=== PATIENT | male | born 1960 | race Hispanic/Latino ===

== ENCOUNTER 2019-04-02 11:24 | Emergency (ER) | payer OTHER ==
--- OUTSIDE RECORDS SUMMARY | 2019-04-02 11:27 | XMS REPORT | Continuity of Care Document ---
:1960 Author Organization [facility] Care Team Providers Name Role Phone MD Lantigua Tom Unavailable Unavailable Insurance Providers Payer name Policy type / Policy ID Covered libertarian ID Policy [place] Coverage type 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 GROIN MASS, RIGHT Mar 02, 2012 Active LONG-TERM (CURRENT) USE OF OTHER MEDICATIONS Mar 02, 2012 Active SPECIAL SCREENING MALIGNANT NEOPLASM OF PROSTATE Mar 02, 2012 Active INSOMNIA May 09, 2012 Active ALLERGIC RHINITIS Jun 19, 2013 Active TINNITUS Jun 19, 2013 Active CERUMEN IMPACTION, LEFT Jun 19, 2013 Active SCREENING, COLON CANCER Jun 22, 2013 Active SPECIAL SCREENING MALIGNANT NEOPLASM OF PROSTATE Jun 22, 2013 Active INFLUENZA WITH RESPIRATORY MANIFESTATIONS Jun 29, 2013 Active BODY MASS INDEX 28.0-28.9, ADULT Jul 01, 2014 Active HEMATOCHEZIA Sep 09, 2014 Active NEED FOR PROPHYLACTIC VACCINATION AND INOCULATION Sep 10, 2014 Active AGAINST INFLUENZA UNSPECIFIED HEMORRHOIDS WITH OTHER COMPLICATION Sep 10, 2014 Active Procedures Date Description Comments Dec 14, 2011 smoking status smoker - current status unknown Mar 02, 2012 smoking status never smoker May 09, 2012 smoking status never smoker Jul 01, 2014 smoking status Never smoker Sep 09, 2014 smoking status Never smoker Medications Medication Instructions Start Date Status PROPRANOLOL HCL 80 MG TABS Active INDERAL LA 120 MG [id number] 1 p.o. daily Dec 14, 2011 Active TRAMADOL HCL 50 MG TABS 1 p.o. every 6 hrs. as needed Dec 14, 2011 Active AMLODIPINE BESYLATE 10 MG TABS 1 p.o. daily Dec 14, 2011 Active AMLODIPINE BESYLATE 10 MG TABS 1 PO Q DAILY November 20, 2012 Active LISINOPRIL-HYDROCHLOROTHIAZIDE one po q daily November 20, 2012 Active 10-12.5 MG TABS FLONASE 50 MCG/ACT SUSP 2 sprays to each nostril daily Jun 19, 2013 Active KLONOPIN 0.5 MG TABS 1 po q hs prn insomia May 09, 2012 Inactive LISINOPRIL-HYDROCHLOROTHIAZIDE one po daily Jun 22, 2013 Active 10-12.5 MG TABS TAMIFLU 75 MG CAPS take one tablet by mouth twice a Jun 29, 2013 Inactive day for five days ZITHROMAX Z-ANNELISE 250 MG TABS as directed with food Jun 29, 2013 Inactive AUGMENTIN 875-125 MG TABS 1 po bid x 10 d with food Jun 29, 2013 Inactive VENLAFAXINE HCL ER 37.5 MG 1 po qd Jul 01, 2014 Active [id number] TRAMADOL HCL 50 MG TABS 1 po q 6 hours prn severe Apr 25, 2013 Inactive headache ANUSOL-HC 25 MG SUPP Insert 1 suppository per rectum Sep 10, 2014 Active twice a day for 5 days Vital Signs Date Description Test Result Dec 14, 2011 height E&M - 8302-2 HEIGHT 66.5 in Dec 14, 2011 weight E&M - 3141-9 WEIGHT 171.8 lb Dec 14, 2011 temperature E&M TEMPERATURE 98.4 deg f Dec 14, 2011 pulse rate E&M - 8867-4 PULSE RATE 72 /min Dec 14, 2011 blood pressure, systolic - 8480-6 BP SYSTOLIC 100 mm Hg Dec 14, 2011 blood pressure, diastolic - 8462-4 BP DIASTOLIC 70 mm Hg Mar 02, 2012 weight E&M - 3141-9 WEIGHT 176 lb Mar 02, 2012 temperature E&M TEMPERATURE 98.9 deg f Mar 02, 2012 respiratory rate E&M - 9279-1 RESP RATE 19 /min Mar 02, 2012 pulse rate E&M - 8867-4 PULSE RATE 60 /min Mar 02, 2012 blood pressure, systolic - 8480-6 BP SYSTOLIC 112 mm Hg Mar 02, 2012 blood pressure, diastolic - 8462-4 BP DIASTOLIC 80 mm Hg May 09, 2012 weight E&M - 3141-9 WEIGHT 179.8 lb May 09, 2012 temperature E&M TEMPERATURE 98 deg f May 09, 2012 pulse rate E&M - 8867-4 PULSE RATE 60 /min May 09, 2012 blood pressure, systolic - 8480-6 BP SYSTOLIC 100 mm Hg May 09, 2012 blood pressure, diastolic - 8462-4 BP DIASTOLIC 60 mm Hg May 31, 2013 weight E&M - 3141-9 WEIGHT 181.2 lb May 31, 2013 temperature E&M TEMPERATURE 98.6 deg f May 31, 2013 pulse rate E&M - 8867-4 PULSE RATE 72 /min May 31, 2013 blood pressure, systolic - 8480-6 BP SYSTOLIC 102 mm Hg May 31, 2013 blood pressure, diastolic - 8462-4 BP DIASTOLIC 60 mm Hg Jun 19, 2013 weight E&M - 3141-9 WEIGHT 180 lb Jun 19, 2013 respiratory rate E&M - 9279-1 RESP RATE 14 /min Jun 19, 2013 temperature E&M TEMPERATURE 97.7 deg f Jun 19, 2013 pulse rate E&M - 8867-4 PULSE RATE 72 /min Jun 19, 2013 blood pressure, systolic - 8480-6 BP SYSTOLIC 118 mm Hg Jun 19, 2013 blood pressure, diastolic - 8462-4 BP DIASTOLIC 70 mm Hg Jun 22, 2013 weight E&M - 3141-9 WEIGHT 180 lb Jun 22, 2013 temperature E&M TEMPERATURE 98.3 deg f Jun 22, 2013 respiratory rate E&M - 9279-1 RESP RATE 16 /min Jun 22, 2013 pulse rate E&M - 8867-4 PULSE RATE 80 /min Jun 22, 2013 blood pressure, systolic - 8480-6 BP SYSTOLIC 124 mm Hg Jun 22, 2013 blood pressure, diastolic - 8462-4 BP DIASTOLIC 76 mm Hg Jun 29, 2013 weight E&M - 3141-9 WEIGHT 181 lb Jun 29, 2013 respiratory rate E&M - 9279-1 RESP RATE 16 /min Jun 29, 2013 temperature E&M TEMPERATURE 102 deg f Jun 29, 2013 pulse rate E&M - 8867-4 PULSE RATE 104 /min Jun 29, 2013 blood pressure, systolic - 8480-6 BP SYSTOLIC 126 mm Hg Jun 29, 2013 blood pressure, diastolic - 8462-4 BP DIASTOLIC 78 mm Hg Jul 01, 2014 height E&M - 8302-2 HEIGHT 66.5 in Jul 01, 2014 weight E&M - 3141-9 WEIGHT 178 lb Jul 01, 2014 temperature E&M TEMPERATURE 98.5 deg f Jul 01, 2014 respiratory rate E&M - 9279-1 RESP RATE 16 /min Jul 01, 2014 pulse rate E&M - 8867-4 PULSE RATE 48 /min Jul 01, 2014 blood pressure, systolic - 8480-6 BP SYSTOLIC 110 mm Hg Jul 01, 2014 blood pressure, diastolic - 8462-4 BP DIASTOLIC 70 mm Hg Sep 09, 2014 weight E&M - 3141-9 WEIGHT 184 lb Sep 09, 2014 height E&M - 8302-2 HEIGHT 66.5 in Sep 09, 2014 temperature E&M TEMPERATURE 98.4 deg f Sep 09, 2014 respiratory rate E&M - 9279-1 RESP RATE 17 /min Sep 09, 2014 pulse rate E&M - 8867-4 PULSE RATE 60 /min Sep 09, 2014 blood pressure, systolic - 8480-6 BP SYSTOLIC 112 mm Hg Sep 09, 2014 blood pressure, diastolic - 8462-4 BP DIASTOLIC 72 mm Hg Sep 10, 2014 height E&M - 8302-2 HEIGHT 66.5 in Sep 10, 2014 weight E&M - 3141-9 WEIGHT 179.6 lb Sep 10, 2014 temperature E&M TEMPERATURE 98.6 deg f Sep 10, 2014 blood pressure, systolic - 8480-6 BP SYSTOLIC 132 mm Hg Sep 10, 2014 blood pressure, diastolic - 8462-4 BP DIASTOLIC 76 mm Hg Results Date Description Test Name Value Reference Interpretation Status Jul 02, hemoglobin, blood HGB 15.7 g/dL 12.3-17.3 2013Jul 02, hematocrit, blood HCT 46.5 % 36.7-50.5 2013Jul 02, sodium, serum SODIUM 140 mmol/L [phone] Jul 02, potassium, serum POTASSIUM 4.0 mmol/L 3.3-5.0 2013Jul 02, albumin, serum ALBUMIN 4.4 g/dL 3.5-5.0 2013Jul 02, calcium, serum CALCIUM 9.8 mg/dL 8.6-9.8 2013Jul 02, creatinine, serum CREATININE 0.88 mg/dL 0.46-1.20 2013Jul 02, urea nitrogen, blood BUN 21 mg/dL -22 2013Jul 02, alkaline phosphatase, ALK PHOS 66 U/L 32-96 2013 serum Jul 02, aspartate SGOT (AST) 22 U/L 10-42 2013 aminotransferase (SGOT), serum Jul 02, alanine SGPT (ALT) 31 U/L -43 2013 aminotransferase (SGPT), serum Jul 02, cholesterol, serum CHOLESTEROL 200 mg/dl [phone] Jul 02, HDL cholesterol, HDL 41 mg/dl 26-62 2013 serum Jul 02, LDL cholesterol, LDL 122 mg/dl 0-130 2013 serum Jul 02, prostate specific PSA 1.14 ng/mL 0-4.0 2013 antigen Jul 02, thyroid stimulating TSH 2.14 0.34-5.60 2014 hormone, serum uIU/mL
--- OUTSIDE RECORDS SUMMARY | 2019-04-02 11:27 | XMS REPORT | Continuity of Care Document ---
:1960 Author Organization [employer] Care Team Providers Name Role Phone [employer] Unavailable Unavailable Problems Problem Status Onset Classification Date Comments Source Date Reported NEED FOR Active 09/11/19 Condition 09/10/2014 Medical PROPHYLACTIC 15 Group VACCINATION AND INOCULATION AGAINST INFLUENZA UNSPECIFIED Active 09/11/19 Condition 09/10/2014 Medical HEMORRHOIDS WITH 15 Group OTHER COMPLICATION HEMATOCHEZIA Active 09/10/19 Condition 09/10/2014 Medical 15 Group BODY MASS INDEX Active 07/01/20 Condition 09/10/2014 Medical 28.0-28.9, ADULT 14 Group INFLUENZA WITH Active 06/29/20 Condition 09/10/2014 Medical RESPIRATORY 13 Group MANIFESTATIONS SCREENING, COLON Active 06/22/20 Condition 09/10/2014 Medical CANCER 13 Group ALLERGIC RHINITIS Active 06/19/20 Condition 09/10/2014 Medical 13 Group TINNITUS Active 06/19/20 Condition 09/10/2014 Medical 13 Group CERUMEN IMPACTION, Active 06/19/20 Condition 09/10/2014 Medical LEFT 13 Group INSOMNIA Active 05/09/20 Condition 09/10/2014 Medical 12 Group GROIN MASS, RIGHT Active 03/02/20 Condition 09/10/2014 Medical 12 Group LONG-TERM Active 03/02/20 Condition 09/10/2014 Medical (CURRENT) USE OF 12 Group OTHER MEDICATIONS SPECIAL SCREENING Active 03/02/20 Condition 09/10/2014 Medical MALIGNANT NEOPLASM 12 Group OF PROSTATE HYPERTENSION Active 12/14/19 Condition 09/10/2014 Medical 12 Group TENSION HEADACHE Active 12/14/19 Condition 09/10/2014 Medical 12 Group MIGRAINE, Active 12/14/19 Condition 09/10/2014 Medical CLASSICAL 12 Group MALIGNANT NEOPLASM Active 12/14/19 Condition 09/10/2014 Medical OF CEREBRAL 12 Group MENINGES FH DIABETES Active Condition 09/10/2014 Medical Group HYPERLIPIDEMIA Active Condition 09/10/2014 Medical Group HTN Active Condition 09/10/2014 Medical Group Medications Medication Details Route Status Patient Ordering Order Source Instructions Provider Date ANUSOL-HC 25 Insert 1 Active MH MG SUPP suppository 015 Medical per rectum Group twice a day for 5 days VENLAFAXINE 1 po qd Active HCL ER 37.5 MG 014 Medical [id number] Group TAMIFLU 75 MG take one No Longer CAPS tablet by Active 013 Medical mouth twice a Group day for five days ZITHROMAX as directed No Longer Z-ANNELISE 250 MG with food Active 013 Medical TABS Group AUGMENTIN 1 po bid x 10 No Longer 875-125 MG d with food Active 013 Medical TABS Group LISINOPRIL-HYD one po daily Active ROCHLOROTHIAZI 013 Medical DE 10-12.5 MG Group TABS LISINOPRIL-HYD one po daily Active ROCHLOROTHIAZI 013 Medical DE 10-12.5 MG Group TABS FLONASE 50 2 sprays to Active MCG/ACT SUSP each nostril 013 Medical daily Group TRAMADOL HCL 1 po q 6 hours No Longer MH 50 MG TABS prn severe Active 013 Medical headache Group AMLODIPINE 1 PO Q DAILY Active BESYLATE 10 MG 013 Medical TABS Group LISINOPRIL-HYD one po q daily Active ROCHLOROTHIAZI 013 Medical DE 10-12.5 MG Group TABS KLONOPIN 0.5 1 po q hs prn No Longer MH MG TABS insomia Active 012 Medical Group INDERAL LA 120 1 p.o. daily Active MH MG [id number] 012 Medical Group TRAMADOL HCL 1 p.o. every 6 Active MH 50 MG TABS hrs. as needed 012 Medical Group AMLODIPINE 1 p.o. daily Active BESYLATE 10 MG 012 Medical TABS Group TRAMADOL HCL 1 p.o. every 6 Active MH 50 MG TABS hrs. as needed 012 Medical Group PROPRANOLOL Active MH HCL 80 MG TABS Medical Group Allergies, Adverse Reactions, Alerts No Known Medication Allergies Immunizations No Data Provided for This Section Results Order Name Results Value Reference Date Interpretation Comments Source Range Chemistry SODIUM 140 135 - 143 2013 Medical Group Chemistry POTASSIUM 4.0 3.3 - 5.0 2013 Medical Group Chemistry ALBUMIN 4.4 3.5 - 5.0 2013 Medical Group Chemistry CALCIUM 9.8 8.6 - 9.8 2013 Medical Group Chemistry CREATININE 0.88 0.46 - 1.20 2013 Medical Group Chemistry BUN 21 10 - 22 2013 Medical Group Chemistry ALK PHOS 66 32 - 96 2013 Medical Group Chemistry SGOT (AST) 22 10 - 42 2013 Medical Group Chemistry SGPT (ALT) 31 11 - 43 2013 Medical Group Chemistry CHOLESTEROL 200 120 - 200 2013 Medical Group Chemistry HDL 41 26 - 62 2013 Medical Group Chemistry LDL 122 0 - 130 2013 Medical Group Chemistry PSA 1.14 0 - 4.0 2013 Medical Group Chemistry TSH 2.14 0.34 - 5.60 2013 Medical Group Hematology HGB 15.7 12.3 - 17.3 2013 Medical Group Hematology HCT 46.5 36.7 - 50.5 2013 Medical Group Pathology Reports No Data Provided for This Section Diagnostic Reports No Data Provided for This Section Consultation Notes No Data Provided for This Section Discharge Summaries No Data Provided for This Section History and Physicals No Data Provided for This Section Vital Signs Vital Sign Value Date Comments Source Height 66.5 09/10/2014 Medical Group Weight 179.6 09/10/2014 Medical Group Temperature Oral (F) 98.6 F 09/10/2014 Medical Group Systolic (mm Hg) 132 09/10/2014 Medical Group Diastolic (mm Hg) 76 09/10/2014 Medical Group Weight 184 09/09/2014 Medical Group Height 66.5 09/09/2014 Medical Group Temperature Oral (F) 98.4 F 09/09/2014 Medical Group Respitory Rate 17 09/09/2014 Medical Group Heart Rate 60 09/09/2014 Medical Group Systolic (mm Hg) 112 09/09/2014 Medical Group Diastolic (mm Hg) 72 09/09/2014 Medical Group Height 66.5 07/01/2014 [facility] Weight 178 07/01/2014 [facility] Temperature Oral (F) 98.5 F 07/01/2014 [facility] Respitory Rate 16 07/01/2014 Medical Group Heart Rate 48 07/01/2014 [facility] Systolic (mm Hg) 110 07/01/2014 [facility] Diastolic (mm Hg) 70 07/01/2014 [facility] Weight 181 06/29/2013 [facility] Respitory Rate 16 06/29/2013 [facility] Temperature Oral (F) 102 F 06/29/2013 Medical Group Heart Rate 104 06/29/2013 [facility] Systolic (mm Hg) 126 06/29/2013 [facility] Diastolic (mm Hg) 78 06/29/2013 [facility] Weight 180 06/22/2013 [facility] Temperature Oral (F) 98.3 F 06/22/2013 Medical Group Respitory Rate 16 06/22/2013 [facility] Heart Rate 80 06/22/2013 [facility] Systolic (mm Hg) 124 06/22/2013 [facility] Diastolic (mm Hg) 76 06/22/2013 [facility] Weight 180 06/19/2013 Medical Group Respitory Rate 14 06/19/2013 [facility] Temperature Oral (F) 97.7 F 06/19/2013 Medical Group Heart Rate 72 06/19/2013 [facility] Systolic (mm Hg) 118 06/19/2013 [facility] Diastolic (mm Hg) 70 06/19/2013 Medical Group Weight 181.2 05/31/2013 [facility] Temperature Oral (F) 98.6 F 05/31/2013 Medical Group Heart Rate 72 05/31/2013 [facility] Systolic (mm Hg) 102 05/31/2013 Medical Group Diastolic (mm Hg) 60 05/31/2013 Medical Group Weight 179.8 05/09/2012 [facility] Temperature Oral (F) 98 F 05/09/2012 Medical Group Heart Rate 60 05/09/2012 [facility] Systolic (mm Hg) 100 05/09/2012 Medical Group Diastolic (mm Hg) 60 05/09/2012 Medical Group Weight 176 03/02/2012 Medical Group Temperature Oral (F) 98.9 F 03/02/2012 Medical Group Respitory Rate 19 03/02/2012 Medical Group Heart Rate 60 03/02/2012 Medical Group Systolic (mm Hg) 112 03/02/2012 Medical Group Diastolic (mm Hg) 80 03/02/2012 Medical Group Height 66.5 12/14/2011 Medical Group Weight 171.8 12/14/2011 Medical Group Temperature Oral (F) 98.4 F 12/14/2011 Medical Group Heart Rate 72 12/14/2011 Medical Group Systolic (mm Hg) 100 12/14/2011 Medical Group Diastolic (mm Hg) 70 12/14/2011 Medical Group Encounters Location Location Encounter Encounter Reason Attending ADM DC Status Source Details Type Number For Provider Date Date Visit [facility] Office [id number] Travis 07/01 07/01 [facility] Visit 180 Desha, /2013 Medical Medical MD Group [facility] Office [id number] Travis 09/09 09/09 [facility] Visit 080 Desha, /2014 Medical Medical MD Group [facility] Office [id number] Travis 09/10 09/10 [facility] Visit 740 Desha, /2014 Medical Medical MD Group [facility] [id number] GALL[place] [facility] [id number] [facility] 08/12 [facility] [id number] [facility] 01/29 [facility] [id number] GALL[place] 07/02 [facility] [place] Procedures No Data Provided for This Section Assessment and Plan No Data Provided for This Section Plan of Care No Data Provided for This Section Social History No Data Provided for This Section Family History No Data Provided for This Section Advance Directives No Data Provided for This Section Functional Status No Data Provided for This Section
--- OUTSIDE RECORDS SUMMARY | 2019-04-02 11:27 | XMS REPORT | Continuity of Care Document ---
:1960 Author Organization [facility] Care Team Providers Name Role Phone MD Lantigua Tom Unavailable Unavailable Insurance Providers Payer name Policy type / Policy ID Covered alliance party ID Policy [place] Coverage type [facility] Encounters Encounter Performer Location Date Office Visit Travis Lantigua MD [facility] Medical [place] [facility] Jul 01, 2014 Practice Problems Problem Effective Dates Problem Status HYPERTENSION Dec 14, 2011 Active TENSION HEADACHE [...] INDEX 28.0-28.9, ADULT Jul 01, 2014 Active Procedures Date Description Comments Dec 14, 2011 smoking status smoker - current status unknown Mar 02, 2012 smoking status never smoker May 09, 2012 smoking status never smoker Jul 01, 2014 smoking status Never smoker Medications Medication Instructions Start Date Status INDERAL LA 120 MG [id number] 1 p.o. daily Dec 14, 2011 Active TRAMADOL HCL 50 MG TABS 1 p.o. every 6 hrs. as needed Dec 14, 2011 Active AMLODIPINE BESYLATE 10 MG TABS 1 p.o. daily Dec 14, 2011 Active FLONASE 50 MCG/ACT SUSP 2 sprays to [...] 1 po qd Jul 01, 2014 Active [id number] Vital Signs Date Description Test Result Dec 14, 2011 height E&M - 8302-2 HEIGHT 66.5 in Dec 14, 2011 weight Venkatesh - Kami-9 WEIGHT 171.8 lb Dec 14, 2011 temperature E&M TEMPERATURE 98.4 deg f Dec 14, 2011 pulse rate E&M - 8867-4 PULSE RATE 72 /min Dec 14, 2011 blood pressure, systolic - 8480-6 BP SYSTOLIC 100 mm Hg Dec 14, 2011 blood pressure, diastolic - 8462-4 BP DIASTOLIC 70 mm Hg Mar 02, 2012 weight Venkatesh - Shaniqua1-9 WEIGHT 176 lb Mar 02, 2012 temperature [...] 80 mm Hg May 09, 2012 weight Venkatesh - Shaniqua1-9 WEIGHT 179.8 lb May 09, 2012 temperature E&M TEMPERATURE 98 deg f May 09, 2012 pulse rate E&M - 8867-4 PULSE RATE 60 /min May 09, 2012 blood pressure, systolic - 8480-6 BP SYSTOLIC 100 mm Hg May 09, 2012 blood pressure, diastolic - 8462-4 BP DIASTOLIC 60 mm Hg May 31, 2013 weight Venkatesh - Shaniqua1-9 WEIGHT 181.2 lb May 31, 2013 temperature E&M TEMPERATURE 98.6 deg f May 31, 2013 pulse rate E&M - 8867-4 PULSE RATE 72 /min May 31, 2013 blood pressure, systolic - 8480-6 BP SYSTOLIC 102 mm Hg May 31, 2013 blood pressure, diastolic - 8462-4 BP DIASTOLIC 60 mm Hg Jun 19, 2013 weight Venkatesh - Shaniqua1-9 WEIGHT 180 lb Jun 19, 2013 respiratory [...]
--- OUTSIDE RECORDS SUMMARY | 2019-04-02 11:27 | XMS REPORT | Continuity of Care Document ---
:[address] [facility] Care Team Providers Name Role Phone MD Lantigua Tom Unavailable Unavailable Insurance Providers Payer name Policy type / Policy ID Covered republican ID Policy [place] Coverage type [facility] EPO CHOICE [facility] (EPO) Encounters Encounter Performer Location Date Office Visit Travis Lantigua MD [facility] Medical [place] [facility] Sep 09, 2014 Practice Problems Problem Effective Dates Problem Status HTN [...] 2014 Active HEMATOCHEZIA Sep 09, 2014 Active Procedures Date Description Comments Dec 14, 2011 smoking status smoker - current status unknown Mar 02, 2012 smoking status never smoker May 09, 2012 smoking status never smoker Jul 01, 2014 smoking status Never smoker Sep 09, 2014 smoking status Never smoker Medications Medication Instructions Start Date Status PROPRANOLOL HCL 80 MG TABS Active INDERAL LA 120 MG [id number] 1 p.o. daily Dec 14, 2011 Active [...] 1 po qd Jul 01, 2014 Active [id number] TRAMADOL HCL 50 MG TABS 1 po q 6 hours prn severe Apr 25, 2013 Inactive headache Vital Signs Date Description Test Result Dec [...] - 8462-4 BP DIASTOLIC 72 mm Hg Results Date Description Test Name Value Reference Interpretation Status Jul 02, hemoglobin, blood HGB 15.7 g/dL 12.3-17.3 2013Jul 02, hematocrit, blood HCT 46.5 % 36.7-50.5 2013Jul 02, sodium, serum SODIUM 140 mmol/L [phone] Jul 02, potassium, serum POTASSIUM 4.0 mmol/L 3.3-5.0 2013Jul 02, albumin, serum ALBUMIN 4.4 g/dL 3.5-5.0 2013Jul 02, calcium, serum CALCIUM 9.8 mg/dL 8.6-9.8 2013Jul 02, creatinine, serum CREATININE 0.88 mg/dL 0.46-1.20 2013Jul 02, urea nitrogen, blood BUN 21 mg/dL -22 2013Jul 02, alkaline phosphatase, ALK PHOS 66 U/L 32-96 2013Jul 02, aspartate SGOT (AST) 22 U/L 10-42 2013 aminotransferase (SGOT), serum Jul 02, alanine SGPT (ALT) 31 U/L -43 2013 aminotransferase (SGPT), serum Jul 02, cholesterol, serum CHOLESTEROL 200 mg/dl [phone] Jul 02, HDL cholesterol, HDL 41 mg/dl 26-62 2013 serum Jul 02, LDL cholesterol, LDL 122 mg/dl 0-130 2013Jul 02, prostate specific PSA 1.14 ng/mL 0-4.0 2013 antigen Jul 02, thyroid stimulating TSH 2.14 0.34-5.60 2014 hormone, serum uIU/mL
--- NOTE | 2019-04-02 12:21 | EDPHYS ---
Physician Documentation [facility] Name: Hudson Agustin Age: 59 yrs Sex: Male : 1960 Arrival Date: 04/02/2019 Time: 11:27 Bed 26 Private MD: ED Physician Karel Dawson HPI: 04/02 12:02 This 59 yrs old Male presents to ER via Ambulatory with complaints of Nausea, gs Dizziness. 12:02 The patient presents with dizziness, lightheadedness, vertigo. Onset: The gs symptoms/episode began/occurred 2 day(s) ago. Onset: The symptoms/episode began/occurred intermittent. Modifying factors: The symptoms are alleviated by nothing, the symptoms are aggravated by nothing. Associated signs and symptoms: Pertinent positives: nausea. Severity of symptoms: At their worst the symptoms were moderate in the emergency department the symptoms have resolved. The patient has experienced similar episodes in the past, a few times. Historical: - Allergies: 11:33 No Known Allergies; bp - Home Meds: 11:33 propranolol 120 mg oral Cs24 1 cap once daily [Active]; amlodipine 5 mg tab 1 tab once bp daily [Active]; tramadol 50 mg Oral tab 1 tab every 6 hours [Active]; zolpidem 10 mg Oral tab 1 tab once daily [Active]; - PMHx: 11:33 Hypertension; bp 12:05 brain tumor; gs - Immunization history:: Adult Immunizations up to date. - Social history:: Smoking status: Patient/guardian denies using tobacco. - Ebola Screening: : No symptoms or risks identified at this time. ROS: 12:05 All other systems are negative. gs Exam: 12:05 Head/Face: Normocephalic, atraumatic. Eyes: Pupils equal round and reactive to light, gs extra-ocular motions intact. Lids and lashes normal. Conjunctiva and sclera are non-icteric and not injected. Cornea within normal limits. Periorbital areas with no swelling, redness, or edema. ENT: Nares patent. No nasal discharge, no septal abnormalities noted. Tympanic membranes are normal and external auditory canals are clear. Oropharynx with no redness, swelling, or masses, exudates, or evidence of obstruction, uvula midline. Mucous membranes moist. Neck: Trachea midline, no thyromegaly or masses palpated, and no cervical lymphadenopathy. Supple, full range of motion without nuchal rigidity, or vertebral point tenderness. No Meningismus. Chest/axilla: Normal chest wall appearance and motion. Nontender with no deformity. No lesions are appreciated. Cardiovascular: Regular rate and rhythm with a normal S1 and S2. No gallops, murmurs, or rubs. Normal PMI, no JVD. No pulse deficits. Respiratory: Lungs have equal breath sounds bilaterally, clear to auscultation and percussion. No rales, rhonchi or wheezes noted. No increased work of breathing, no retractions or nasal flaring. Abdomen/GI: Soft, non-tender, with normal bowel sounds. No distension or tympany. No guarding or rebound. No evidence of tenderness throughout. Back: No spinal tenderness. No costovertebral tenderness. Full range of motion. Skin: Warm, dry with normal turgor. Normal color with no rashes, no lesions, and no evidence of cellulitis. MS/ Extremity: Pulses equal, no cyanosis. Neurovascular intact. Full, normal range of motion. 12:05 Constitutional: The patient appears alert, awake. 12:05 ECG was reviewed by the Attending Physician. 12:05 Neuro: Orientation: is normal, Mentation: is normal, Memory: is normal, Cranial nerves: CN II- XII are normal as tested, Cerebellar function: normal finger to nose testing, heel to gaxiola testing is normal, Motor: is normal, Sensation: no obvious gross deficits. Vital Signs: 11:33 BP 161 / 91; Pulse 54; Resp 17; Temp 97.5; Pulse Ox 99% ; Weight 77.11 kg; Height 5 ft. bp 6 in. (167.64 cm); 11:33 Body Mass Index 27.44 (77.11 kg, 167.64 cm) bp NIH Stroke Scale Scores: 12:05 NIHSS Score: 0 gs MDM: 11:58 Patient medically screened. gs 12:05 Differential diagnosis: cardiac arrhythmia, near-syncope, vertigo. Data reviewed: vital gs signs, nurses notes. Counseling: I had a detailed discussion with the patient and/or guardian regarding: the historical points, exam findings, and any diagnostic results supporting the discharge/admit diagnosis, the need for outpatient follow up, a neurologist. Response to treatment: the patient's symptoms have resolved after treatment. Physician consultation: Giovani Street MD regarding patient's condition, need to evaluate the patient as soon as possible, outpatient follow-up, and will see patient in office, in 2-3 days, will order MRI. EC:05 Rate is 55 beats/min. Rhythm is regular. NH interval is prolonged. QRS interval is gs normal. T waves are Normal. No ST changes noted. Clinical impression: Abnormal EKG without significant change. Interpreted by me. Administered Medications: No medications were administered Disposition: 04/02/19 12:20 Discharged to Home. Impression: Dizziness and giddiness. - Condition is Stable. - Discharge Instructions: Dizziness. - Prescriptions for Zyrtec 10 mg Oral Tablet - take 1 tablet by ORAL route once daily As needed; 20 tablet. - Medication Reconciliation Form, Thank You Letter, Antibiotic Education, Prescription Opioid Use form. - Follow up: Giovani Street MD; When: 1 - 2 days; Reason: Re-evaluation by your physician. NIH Stroke Scale - NIH Stroke Score Date: 04/02/2019 Time: 12:05 Total Score = 0 1a. Level of Consciousness (LOC) - 0(Alert) 1b. Level of Consciousness (LOC) (Year \T\ Age) - 0(Both) 1c. LOC Commands (Open \T\ Closes Eyes/Motor Builder Winder) - 0(Both) 2. Best Gaze (Lateral Gaze Paresis) - 0(Normal) 3. Visual Field Loss - 0(No visual loss) 4. Facial Palsy - 0(Normal) 5a. Left Arm: Motor (10-second hold) - 0(No drift) 5b. Right Arm: Motor (10-second hold) - 0(No drift) 6a. Left Leg: Motor (5-second hold - always test supine) - 0(No drift) 6b. Right Leg: Motor (5-second hold - always test supine) - 0(No drift) 7. Limb Ataxia (finger/nose \T\ heel/gaxiola - test with eyes open) - 0(Absent) 8. Sensory Loss (pinprick arms/legs/face) - 0(Normal) 9. Best Language: Aphasia (description/naming/reading) - 0(No aphasia) 10. Dysarthria (speech clarity - read or repeat words) - 0(Normal) 11. Extinction and Inattention (visual/tactile/auditory/spatial/personal) - 0(No abnormality) Initials: Signatures: Mariella Drew RN RN aj1 Karel Dawson MD MD gs Malik Yang RN RN bp Corrections: (The following items were deleted from the chart) 12:44 12:20 04/02/2019 12:20 Discharged to Home. Impression: Dizziness and giddiness. aj1 Condition is Stable. Forms are Medication Reconciliation Form, Thank You Letter, Antibiotic Education, Prescription Opioid Use. Follow up: Giovani Street; When: 1 - 2 days; Reason: Re-evaluation by your physician. gs
--- NOTE | 2019-04-02 12:21 | ER ---
Nurse's Notes [facility] Name: Hudson Agustin Age: 59 yrs Sex: Male : 1960 Arrival Date: 04/02/2019 Time: 11:27 Bed 26 Private MD: Diagnosis: Dizziness and giddiness Presentation: 04/02 11:31 Presenting complaint: Patient states: DIZZINESS AND NAUSEA x2 DAYS. Transition of care: bp patient was not received from another setting of care. Onset of symptoms is unknown. Risk Assessment: Do you want to hurt yourself or someone else? Patient reports no desire to harm self or others. Initial Sepsis Screen: Does the patient meet any 2 criteria? No. Patient's initial sepsis screen is negative. Does the patient have a suspected source of infection? No. Patient's initial sepsis screen is negative. Care prior to arrival: None. 11:31 Method Of Arrival: Ambulatory bp 11:31 Acuity: NIKOLAS 3 bp Historical: - Allergies: 11:33 No Known Allergies; bp - Home Meds: 11:33 propranolol 120 mg oral Cs24 1 cap once daily [Active]; amlodipine 5 mg tab 1 tab once bp daily [Active]; tramadol 50 mg Oral tab 1 tab every 6 hours [Active]; zolpidem 10 mg Oral tab 1 tab once daily [Active]; - PMHx: 11:33 Hypertension; bp 12:05 brain tumor; gs - Immunization history:: Adult Immunizations up to date. - Social history:: Smoking status: Patient/guardian denies using tobacco. - Ebola Screening: : No symptoms or risks identified at this time. Screenin:42 Abuse screen: Denies threats or abuse. Denies injuries from another. Nutritional aj1 screening: No deficits noted. Tuberculosis screening: No symptoms or risk factors identified. 12:44 Fall Risk None identified. aj1 Assessment: 11:42 General: Appears in no apparent distress. comfortable, Behavior is calm, cooperative, aj1 appropriate for age. Pain: Denies pain. Neuro: Level of Consciousness is awake, alert, obeys commands, Oriented to person, place, time, situation, Moves all extremities. Full function Gait is steady, Speech is normal, Facial symmetry appears normal, Reports dizziness, Denies weakness. Cardiovascular: Denies chest pain, diaphoresis, palpitations, shortness of breath, Patient's skin is warm and dry. Rhythm is sinus bradycardia. Respiratory: Airway is patent Respiratory effort is even, unlabored, Respiratory pattern is regular, symmetrical. GI: Abdomen is flat, non-distended, Reports nausea, Patient currently denies vomiting. : No signs and/or symptoms were reported regarding the genitourinary system. EENT: No signs and/or symptoms were reported regarding the EENT system. Derm: No signs and/or symptoms reported regarding the dermatologic system. Skin is pink, warm \T\ dry. normal. Musculoskeletal: No signs and/or symptoms reported regarding the musculoskeletal system. Circulation, motion, and sensation intact. Vital Signs: 11:33 BP 161 / 91; Pulse 54; Resp 17; Temp 97.5; Pulse Ox 99% ; Weight 77.11 kg; Height 5 ft. bp 6 in. (167.64 cm); 11:33 Body Mass Index 27.44 (77.11 kg, 167.64 cm) bp NIH Stroke Scale Scores: 12:05 NIHSS Score: 0 ED Course: 11:27 Patient arrived in ED. mr 11:32 Triage completed. bp 11:33 Arm band placed on. bp 11:34 Karel Dawson MD is Attending Physician. gs 11:35 Mariella Drew, LUIS is Primary Nurse. aj1 11:42 Patient has correct armband on for positive identification. Bed in low position. Call aj1 light in reach. Side rails up X 1. Adult w/ patient. manager lab on. Pulse ox on. NIBP on. 11:42 No provider procedures requiring assistance completed. aj1 11:47 EKG done, by mechanical sound technician. reviewed by Karel Dawson MD. at1 12:[address] MD is Referral Physician. gs 12:44 Patient did not have IV access during this emergency room visit. aj1 Administered Medications: No medications were administered Outcome: 12:20 Discharge ordered by . gs 12:44 Patient left the ED. aj1 12:44 Discharged to home ambulatory, with family. aj1 12:44 Condition: good 12:44 Discharge instructions given to patient, Instructed on discharge instructions, follow up and referral plans. Demonstrated understanding of instructions, follow-up care. NIH Stroke Scale - NIH Stroke Score Date: 04/02/2019 Time: 12:05 Total Score = 0 1a. Level of Consciousness (LOC) - 0(Alert) 1b. Level of Consciousness (LOC) (Year \T\ Age) - 0(Both) 1c. LOC Commands (Open \T\ Closes Eyes/Lead Relay Tester) - 0(Both) 2. Best Gaze (Lateral Gaze Paresis) - 0(Normal) 3. Visual Field Loss - 0(No visual loss) 4. Facial Palsy - 0(Normal) 5a. Left Arm: Motor (10-second hold) - 0(No drift) 5b. Right Arm: Motor (10-second hold) - 0(No drift) 6a. Left Leg: Motor (5-second hold - always test supine) - 0(No drift) 6b. Right Leg: Motor (5-second hold - always test supine) - 0(No drift) 7. Limb Ataxia (finger/nose \T\ heel/gaxiola - test with eyes open) - 0(Absent) 8. Sensory Loss (pinprick arms/legs/face) - 0(Normal) 9. Best Language: Aphasia (description/naming/reading) - 0(No aphasia) 10. Dysarthria (speech clarity - read or repeat words) - 0(Normal) 11. Extinction and Inattention (visual/tactile/auditory/spatial/personal) - 0(No abnormality) Initials: Signatures: Mariella Drew, RN RN aj1 Sherie Padilla mr Melany Fishman, electrician third EKG Tat1 Karel Dawson MD MD gs Peltier, Brian, LUIS SMITH bp
--- NOTE | 2019-04-02 15:43 | EKG ---
Test Date: 2019-04-02 Test Time: 11:47:39 [employer]age And Salary Specialist: DOM MEASUREMENT RESULTS: Intervals: Rate: 55 OR: 204 QRSD: 88 QT: 434 QTc: 415 [place]: P: 38 OR: 204 QRS: -44 T: 38 INTERPRETIVE STATEMENTS: Sinus bradycardia Left axis deviation Cannot rule out Anterior infarct, age undetermined Abnormal ECG No previous ECG available for comparison Electronically Signed On 04-02-19 15:42:28 CDT by Milton Esparza
== END 2019-04-02 12:44 | disposition home or self-care (01) ==
LOC: ER 11:24
DX: R42 Dizziness and giddiness (principal); I10 Essential (primary) hypertension
CPT/HCPCS: 93005; 99284